=== PATIENT | female | born 1955 | race Caucasian/White ===

== ENCOUNTER 2016-06-19 08:46 | Emergency (ER) | payer OTHER ==
[~2016-06-19] VITALS: Ht 162.6 cm; Wt 86.4 kg
[~2016-06-19 08:46] MED LIST: ASPI81TA81 PO; ATEN25 PO; DOCU250C76 PO; FURO40TA5 PO; GABA800T PO; IBUP-2070 PO; LISI20TA PO; METF500T4 PO; METH-372 PO
[2016-06-19] MEDS ORDERED: SPIR25 PO (09:07)
[2016-06-19] MEDS ORDERED: CYCL-375 PO (09:07)
[2016-06-19] MEDS ORDERED: LISI-662 PO (09:07)
[2016-06-19] MEDS ORDERED: AMLO5TAB66 PO (09:07)
[2016-06-19] MEDS ORDERED: HYDR-3965 PO (09:07)
[2016-06-19] MEDS ORDERED: PRAV20TA4 PO (09:07)
[2016-06-19] MEDS ORDERED: PANT40TA25 PO (09:07)
[2016-06-19] MEDS ORDERED: CLOP75TA32 PO (09:07)
[2016-06-19] MEDS ORDERED: LORA10TA7 PO (09:07)
[2016-06-19] MEDS ORDERED: SITA100 PO (09:07)
[2016-06-19] MEDS ORDERED: DiphenhydrAMINE HCL 50 MG/ML VIAL IVP ONE (09:30)
[2016-06-19] MEDS ORDERED: ACETAMINOPHEN 500 MG TABLET PO ONE (09:30)
[2016-06-19] MEDS ORDERED: PROCHLORPERAZINE EDISYLATE 5 MG/ML 2 ML VIAL IVP ONE (09:30)
[2016-06-19] MEDS ORDERED: SODIUM CHLORIDE 0.9% 1,000 ML IV ONE ×2 (09:30→11:30)
[2016-06-19 09:40] LABS: GLUCOSE,POINT OF CARE 158 MG/DL (70-110)
[2016-06-19 10:09] LABS: BASOPHILS % (AUTO) 0.2 % (0.0-2.0); EOSINOPHILS % (AUTO) 0.5 % (1.0-6.0); HEMATOCRIT 36.8 % (36-46); HEMOGLOBIN 12.1 g/dL (12.0-16.0); LYMPHOCYTES # (AUTO) 1.4 K/uL (1.0-4.8); LYMPHOCYTES % (AUTO) 10.9 % (22.0-44.0); MEAN CORPUSCULAR HEMOGLOBIN 28.2 pg (26.0-34.0); MEAN CORPUSCULAR VOLUME 85 fL (80-100); MONOCYTES # (AUTO) 0.8 K/uL (0.1-1.0); MONOCYTES % (AUTO) 6.3 % (2.0-9.0); NEUTROPHILS # (AUTO) 10.8 K/uL (1.8-7.7); NEUTROPHILS % (AUTO) 82.1 % (40.0-70.0); PLATELET COUNT (AUTO) 247 K/uL (150-450); RED BLOOD CELL COUNT(AUTO) 4.31 MIL/uL (4.00-5.20); RED CELL DISTRIBUTION WIDTH 14.3 % (11.5-14.5); WHITE BLOOD COUNT (AUTO) 13.2 K/uL (4.5-11.0)
[2016-06-19 10:28] LABS: CALCIUM, TOTAL 8.8 mg/dL (8.8-10.5); CREATININE 1.43 mg/dL (0.60-1.30); POTASSIUM 4.3 mmol/L (3.5-5.1)
[2016-06-19 10:32] LABS: ALBUMIN 3.3 g/dL (3.4-5.0); BILIRUBIN,TOTAL 0.6 mg/dL (0.1-1.0); TOTAL PROTEIN, SERUM 7.5 g/dL (6.4-8.2)
[2016-06-19 13:22] LABS: APPEARANCE,URINE CLOUDY (CLEAR); GLUCOSE, URINE (UA) NEGATIVE (NEGATIVE); KETONES,URINE NEGATIVE (NEGATIVE); LEUKOCYTE ESTERASE ,URINE MODERATE (NEGATIVE); OCCULT BLOOD,URINE TRACE (NEGATIVE); PROTEIN,URINE NEGATIVE (NEGATIVE)
[2016-06-19 13:27] LABS: RBC,URINE 0-2 /HPF (0-2)
[2016-06-19 13:28] LABS: WBC,URINE 51-100 /HPF (0-5)
[2016-06-19 13:30] LABS: SQUAMOUS EPITHELIAL CELL,UR Few /LPF (None Seen)
[2016-06-19] MEDS ORDERED: CefTRIAXone 1 GM/DEXTROSE 50 ML IV ONE (13:45)
[2016-06-19 14:22] VITALS: BP 122/68
== END 2016-06-19 14:24 | disposition home or self-care (01) ==
LOC: EMS 08:49
DX: R51 Headache (principal); N12 Tubulo-interstitial nephritis, not specified as acute or chronic; E11.9 Type 2 diabetes mellitus without complications; E78.00 Pure hypercholesterolemia, unspecified; I25.10 Atherosclerotic heart disease of native coronary artery without angina pectoris; I10 Essential (primary) hypertension; Z79.84 Long term (current) use of oral hypoglycemic drugs
CPT/HCPCS: 36415; 80053; 81001; 82962; 84484; 84703; 85025; 87077; 87086; 87186; 96361; 96365; 96375; 99285; J0696; J0780; J1200; J7030

== ENCOUNTER 2016-06-28 20:31 | Inpatient (IN) | payer OTHER ==
[~2016-06-28] VITALS: Ht 162.6 cm; Wt 90.1 kg
[~2016-06-28 20:31] MED LIST changes: +AMLO5TAB66 PO; +CLOP75TA32 PO; +CYCL-375 PO; +HYDR-3965 PO; +LISI-662 PO; -LISI20TA PO; +LORA10TA7 PO; +PANT40TA25 PO; +PRAV20TA4 PO; +SITA100 PO; +SPIR25 PO
[2016-06-28 20:51] LABS: GLUCOSE,POINT OF CARE 171 MG/DL (70-110)
[2016-06-28 21:23] LABS: BASOPHILS % (AUTO) 0.4 % (0.0-2.0); EOSINOPHILS % (AUTO) 0.4 % (1.0-6.0); HEMATOCRIT 38.1 % (36-46); HEMOGLOBIN 12.8 g/dL (12.0-16.0); LYMPHOCYTES # (AUTO) 3.8 K/uL (1.0-4.8); LYMPHOCYTES % (AUTO) 31.6 % (22.0-44.0); MEAN CORPUSCULAR HEMOGLOBIN 28.5 pg (26.0-34.0); MEAN CORPUSCULAR HGB CONC 33.5 G/dL (31.0-37.0); MEAN CORPUSCULAR VOLUME 85 fL (80-100); MONOCYTES # (AUTO) 0.6 K/uL (0.1-1.0); MONOCYTES % (AUTO) 5.1 % (2.0-9.0); NEUTROPHILS # (AUTO) 7.6 K/uL (1.8-7.7); NEUTROPHILS % (AUTO) 62.5 % (40.0-70.0); PLATELET COUNT (AUTO) 372 K/uL (150-450); RED BLOOD CELL COUNT(AUTO) 4.49 MIL/uL (4.00-5.20); WHITE BLOOD COUNT (AUTO) 12.1 K/uL (4.5-11.0)
[2016-06-28 21:57] LABS: ALBUMIN 4.1 g/dL (3.4-5.0); BILIRUBIN,TOTAL 0.6 mg/dL (0.1-1.0); CALCIUM, TOTAL 9.4 mg/dL (8.8-10.5); CREATININE 2.04 mg/dL (0.60-1.30); POTASSIUM 4.6 mmol/L (3.5-5.1); TOTAL PROTEIN, SERUM 8.3 g/dL (6.4-8.2)
[2016-06-29] MEDS ORDERED: SODIUM CHLORIDE 0.9% 1,000 ML IV ONE ×2 (00:15→02:30)
[2016-06-29] MEDS ORDERED: HYDROmorphone 2 MG/ML SYRINGE IVP ONE ×2 (00:15→03:15)
[2016-06-29] MEDS ORDERED: ONDANSETRON HCL 4 MG/2 ML VIAL IVP ONE (00:15)
[2016-06-29 01:12] LABS: PROTHROMBIN TIME 10.5 SEC (9.4-11.6)
[2016-06-29 01:18] LABS: AMMONIA 10 umol/L (11-32)
[2016-06-29 01:19] LABS: LACTIC ACID 1.7 mmol/L (0.4-2.0)
[2016-06-29 01:20] LABS: TROPONIN I < 0.02 ng/mL (0.00-0.05)
[2016-06-29 01:35] LABS: CREATINE KINASE MB 1.7 ng/mL (0-5); CREATINE KINASE, TOTAL 113 U/L (26-192)
[2016-06-29 02:08] LABS: B-TYPE NATRIURETIC PEPTIDE < 5 pg/mL (0-100)
[2016-06-29] MEDS ORDERED: ONDANSETRON HCL 4 MG/2 ML VIAL IVP PRN ×2 (02:30→11:45)
[2016-06-29] MEDS ORDERED: 0.9% SODIUM CHLORIDE 10 ML SYRINGE IVP PRN (02:30)
[2016-06-29] MEDS ORDERED: ACETAMINOPHEN 325 MG TABLET PO PRN (02:30)
[2016-06-29 02:36] LABS: APPEARANCE,URINE CLEAR (CLEAR); GLUCOSE, URINE (UA) NEGATIVE (NEGATIVE); KETONES,URINE 15 mg/dL (NEGATIVE); LEUKOCYTE ESTERASE ,URINE NEGATIVE (NEGATIVE); OCCULT BLOOD,URINE NEGATIVE (NEGATIVE); PH,URINE 5.5 (5.0-8.0); PROTEIN,URINE NEGATIVE (NEGATIVE)
[2016-06-29 02:41] LABS: ADD UA MICROSCOPIC NO
[2016-06-29 05:12] VITALS: BP 120/74
[2016-06-29 11:23] VITALS: BP 119/71
[2016-06-29] MEDS ORDERED: BISACODYL 10 MG RECTAL RECTAL SUPPOSITORY PR PRN (11:45)
[2016-06-29] MEDS ORDERED: DEXTROSE 50%-WATER 25 GM/50 ML SYRINGE IVP PRN (11:45)
[2016-06-29] MEDS: MORPHINE SULFATE 2 MG/ML SYRINGE IVP PRN ×3 (12:01→23:41)
[2016-06-29 16:25] VITALS: BP 120/70
[2016-06-29] MEDS: ACETAMINOPHEN 325 MG TABLET PO PRN (18:34)
[2016-06-29 20:05] VITALS: BP 115/56
[2016-06-29] MEDS: DOCUSATE SODIUM 100 MG CAPSULE PO SCH (20:12)
[2016-06-29] MEDS: HEPARIN SODIUM,PORCINE 5,000 UNITS/ML VIAL SQ SCH (20:13)
[2016-06-29] MEDS: INSULIN ASPART 100 UNITS/ML SQ PRN (20:26)
[2016-06-29 22:41] LABS: GLUCOSE,POINT OF CARE 97 MG/DL (70-110)
[2016-06-30] VITALS (7 sets, daily range): BP systolic 102–124; BP diastolic 58–78
[2016-06-30] MEDS: MORPHINE SULFATE 2 MG/ML SYRINGE IVP PRN ×4 (05:14→20:38)
[2016-06-30 07:21] LABS: GLUCOSE,POINT OF CARE 108 MG/DL (70-110)
[2016-06-30 07:21] LABS: GLUCOSE COMMENT 1 Received Meds; GLUCOSE,POINT OF CARE 125 MG/DL (70-110)
[2016-06-30 07:21] LABS: GLUCOSE COMMENT 1 Received Meds; GLUCOSE,POINT OF CARE 151 MG/DL (70-110)
[2016-06-30 07:22] LABS: CALCIUM, TOTAL 8.8 mg/dL (8.8-10.5); CREATININE 1.4 mg/dL (0.60-1.30)
[2016-06-30] MEDS: PANTOPRAZOLE SODIUM 40 MG DR TABLET PO SCH (08:32)
[2016-06-30] MEDS: DOCUSATE SODIUM 100 MG CAPSULE PO SCH ×2 (08:33→20:37)
[2016-06-30] MEDS: HEPARIN SODIUM,PORCINE 5,000 UNITS/ML VIAL SQ SCH ×2 (08:33→20:39)
[2016-06-30] MEDS: ASPIRIN 81 MG CHEWABLE TABLET PO SCH (08:33)
[2016-06-30] MEDS: ACETAMINOPHEN 325 MG TABLET PO PRN (11:48)
[2016-06-30] MEDS ORDERED: SODIUM CHLORIDE 0.9% 250 ML IV ONE (15:30)
[2016-06-30] MEDS: MetroNIDAZOLE 500 MG/NACL 100 ML IV SCH ×2 (15:32→21:07)
[2016-06-30] MEDS: CIPROFLOXACIN 400 MG/D5% WATER 200 ML IV SCH (16:45)
[2016-06-30] MEDS: INSULIN ASPART 100 UNITS/ML SQ PRN ×2 (18:07→20:41)
[2016-06-30 18:51] LABS: GLUCOSE COMMENT 1 Received Meds; GLUCOSE,POINT OF CARE 143 MG/DL (70-110)
[2016-07-01] MEDS: CIPROFLOXACIN 400 MG/D5% WATER 200 ML IV SCH ×2 (02:32→17:30)
[2016-07-01] MEDS: MetroNIDAZOLE 500 MG/NACL 100 ML IV SCH ×3 (05:23→22:05)
[2016-07-01 06:37] LABS: BASOPHILS % (AUTO) 0.4 % (0.0-2.0); EOSINOPHILS % (AUTO) 1.2 % (1.0-6.0); HEMATOCRIT 35.9 % (36-46); HEMOGLOBIN 11.6 g/dL (12.0-16.0); LYMPHOCYTES # (AUTO) 2.1 K/uL (1.0-4.8); LYMPHOCYTES % (AUTO) 28.8 % (22.0-44.0); MEAN CORPUSCULAR HEMOGLOBIN 27.8 pg (26.0-34.0); MEAN CORPUSCULAR HGB CONC 32.4 G/dL (31.0-37.0); MEAN CORPUSCULAR VOLUME 86 fL (80-100); MONOCYTES # (AUTO) 0.5 K/uL (0.1-1.0); MONOCYTES % (AUTO) 6.8 % (2.0-9.0); NEUTROPHILS # (AUTO) 4.6 K/uL (1.8-7.7); NEUTROPHILS % (AUTO) 62.8 % (40.0-70.0); PLATELET COUNT (AUTO) 316 K/uL (150-450); RED BLOOD CELL COUNT(AUTO) 4.18 MIL/uL (4.00-5.20); RED CELL DISTRIBUTION WIDTH 14.5 % (11.5-14.5); WHITE BLOOD COUNT (AUTO) 7.3 K/uL (4.5-11.0)
[2016-07-01 07:12] LABS: GLUCOSE,POINT OF CARE 113 MG/DL (70-110)
[2016-07-01 07:12] LABS: GLUCOSE COMMENT 1 Received Meds; GLUCOSE,POINT OF CARE 143 MG/DL (70-110)
[2016-07-01 07:18] VITALS: BP 120/72
[2016-07-01] MEDS ORDERED: SODIUM CHLORIDE 0.9% 250 ML IV ONE (07:48)
[2016-07-01 08:21] LABS: CALCIUM, TOTAL 8.9 mg/dL (8.8-10.5); CREATININE 1.2 mg/dL (0.60-1.30)
[2016-07-01] MEDS: DOCUSATE SODIUM 100 MG CAPSULE PO SCH ×2 (09:00→20:15)
[2016-07-01] MEDS: ASPIRIN 81 MG CHEWABLE TABLET PO SCH (09:20)
[2016-07-01] MEDS: PANTOPRAZOLE SODIUM 40 MG DR TABLET PO SCH (09:21)
[2016-07-01] MEDS: HEPARIN SODIUM,PORCINE 5,000 UNITS/ML VIAL SQ SCH ×2 (09:24→22:05)
[2016-07-01] MEDS: MORPHINE SULFATE 2 MG/ML SYRINGE IVP PRN ×3 (09:31→20:13)
[2016-07-01 09:37] VITALS: BP 117/70
[2016-07-01 11:20] VITALS: BP 111/68
[2016-07-01] MEDS ORDERED: PNEUMOCOCCAL VACCINE POLYVALENT 0.5 ML VIAL [PPSV23] IM ONE (15:00)
[2016-07-01] MEDS ORDERED: INFLUENZA VIRUS VACCINE QVS 2016-17 (3YR+)/PF 60 MCG/0.5 ML SYRINGE IM ONE (15:00)
[2016-07-01 15:40] VITALS: BP 114/77
[2016-07-01] MEDS ORDERED: DIGOXIN 250 MCG/ML 2 ML AMP IVP ONE (15:45)
[2016-07-01] MEDS: LACTOBACILLUS ACIDOPHILUS/BULGARICUS GRANULES PACKET PO SCH ×2 (16:15→20:15)
[2016-07-01 18:27] LABS: GLUCOSE,POINT OF CARE 102 MG/DL (70-110)
[2016-07-01 19:15] VITALS: BP 122/71
[2016-07-01 22:16] LABS: GLUCOSE,POINT OF CARE 126 MG/DL (70-110)
[2016-07-02 00:14] VITALS: BP 100/51
[2016-07-02] MEDS: CIPROFLOXACIN 400 MG/D5% WATER 200 ML IV SCH (02:50)
[2016-07-02 04:17] VITALS: BP 105/57
[2016-07-02] MEDS: MetroNIDAZOLE 500 MG/NACL 100 ML IV SCH (05:22)
[2016-07-02 06:48] LABS: BASOPHILS % (AUTO) 0.3 % (0.0-2.0); HEMATOCRIT 33.4 % (36-46); HEMOGLOBIN 10.9 g/dL (12.0-16.0); LYMPHOCYTES # (AUTO) 1.7 K/uL (1.0-4.8); MEAN CORPUSCULAR HEMOGLOBIN 28.2 pg (26.0-34.0); MEAN CORPUSCULAR HGB CONC 32.6 G/dL (31.0-37.0); MEAN CORPUSCULAR VOLUME 87 fL (80-100); MONOCYTES # (AUTO) 0.4 K/uL (0.1-1.0); MONOCYTES % (AUTO) 5.6 % (2.0-9.0); NEUTROPHILS % (AUTO) 70.1 % (40.0-70.0); PLATELET COUNT (AUTO) 283 K/uL (150-450); RED BLOOD CELL COUNT(AUTO) 3.85 MIL/uL (4.00-5.20); RED CELL DISTRIBUTION WIDTH 14.4 % (11.5-14.5); WHITE BLOOD COUNT (AUTO) 7.2 K/uL (4.5-11.0)
[2016-07-02 06:58] LABS: CALCIUM, TOTAL 8.6 mg/dL (8.8-10.5); CREATININE 1.31 mg/dL (0.60-1.30); POTASSIUM 4.5 mmol/L (3.5-5.1)
[2016-07-02 07:38] VITALS: BP 108/58
[2016-07-02] MEDS: DOCUSATE SODIUM 100 MG CAPSULE PO SCH (09:00)
[2016-07-02] MEDS: LACTOBACILLUS ACIDOPHILUS/BULGARICUS GRANULES PACKET PO SCH (09:28)
[2016-07-02] MEDS: PANTOPRAZOLE SODIUM 40 MG DR TABLET PO SCH (09:28)
[2016-07-02] MEDS: ASPIRIN 81 MG CHEWABLE TABLET PO SCH (09:28)
[2016-07-02] MEDS: HEPARIN SODIUM,PORCINE 5,000 UNITS/ML VIAL SQ SCH (09:30)
[2016-07-02 11:38] VITALS: BP 151/78
[2016-07-02 14:57] LABS: GLUCOSE,POINT OF CARE 123 MG/DL (70-110)
[2016-07-02 14:57] LABS: GLUCOSE,POINT OF CARE 111 MG/DL (70-110)
[2016-07-02 15:22] VITALS: BP 133/76
[2016-07-02] MEDS ORDERED: CIPR500S4 PO (15:45)
[2016-07-02] MEDS ORDERED: CIPR-279 PO (15:46)
[2016-07-02] MEDS ORDERED: ACID1GRA3 PO (15:59)
[2016-07-02] MEDS ORDERED: METR500 PO (16:01)
[2016-07-04 11:57] LABS: GLUCOSE,POINT OF CARE 104 MG/DL (70-110)
[2016-07-04 11:58] LABS: GLUCOSE COMMENT 1 Received Meds; GLUCOSE,POINT OF CARE 122 MG/DL (70-110)
== END 2016-07-02 16:40 | disposition home or self-care (01) | DRG 720 ==
LOC: EMS 20:31 → 5S 06-29 03:11
PROVIDERS: ADMIT Internal Medicine; ATTEND Internal Medicine
PROC: 3E0234Z Introduction of Serum, Toxoid and Vaccine into Muscle, Percutaneous Approach (ICD-10-PCS; principal; 2016-07-01)
PROC: 3E0234Z Introduction of Serum, Toxoid and Vaccine into Muscle, Percutaneous Approach (ICD-10-PCS; 2016-07-01)
DX: A41.9 Sepsis, unspecified organism (principal); N17.0 Acute kidney failure with tubular necrosis; I50.9 Heart failure, unspecified; I11.0 Hypertensive heart disease with heart failure; E11.40 Type 2 diabetes mellitus with diabetic neuropathy, unspecified; K52.9 Noninfective gastroenteritis and colitis, unspecified; N28.1 Cyst of kidney, acquired; E87.1 Hypo-osmolality and hyponatremia; E66.9 Obesity, unspecified; N20.0 Calculus of kidney; I25.10 Atherosclerotic heart disease of native coronary artery without angina pectoris; E78.00 Pure hypercholesterolemia, unspecified; K56.41 Fecal impaction; Z23 Encounter for immunization; Z79.899 Other long term (current) drug therapy; Z79.4 Long term (current) use of insulin; Z79.1 Long term (current) use of non-steroidal anti-inflammatories (NSAID); Z79.82 Long term (current) use of aspirin; Z68.34 Body mass index [BMI] 34.0-34.9, adult; Z98.890 Other specified postprocedural states; Z90.49 Acquired absence of other specified parts of digestive tract
CPT/HCPCS: 51701; 74176; 76770; 82962; 83605; 87040; 87324; 87449; 90471; 93005; 93306; 96361; 96374; 96375; 99285; J0744; J1170; J1644; J2270; J2405; J3490; J7030; J7050

== ENCOUNTER 2017-05-29 11:02 | Emergency (ER) | payer OTHER ==
[~2017-05-29] VITALS: Ht 165.1 cm; Wt 79.5 kg
[~2017-05-29 11:02] MED LIST changes: +ACID1GRA PO; -ATEN25 PO; +ATEN25TA PO; +CIPR-279 PO; -CYCL-375 PO; +CYCL10TA7 PO; -DOCU250C76 PO; -HYDR-3965 PO; +HYDR-4061 PO; -IBUP-2070 PO; -LISI-662 PO; -LORA10TA7 PO; -METH-372 PO; +METR500 PO; -SPIR25 PO
[2017-05-29] MEDS ORDERED: SIMV-259 PO (11:14)
[2017-05-29 11:18] LABS: GLUCOSE,POINT OF CARE 130 MG/DL (70-110)
[2017-05-29 13:13] LABS: BASOPHILS % (AUTO) 0.6 % (0.0-2.0); EOSINOPHILS % (AUTO) 2.8 % (1.0-6.0); HEMATOCRIT 38.5 % (36-46); LYMPHOCYTES # (AUTO) 2.4 K/uL (1.0-4.8); LYMPHOCYTES % (AUTO) 32.4 % (22.0-44.0); MEAN CORPUSCULAR HGB CONC 33.7 G/dL (31.0-37.0); MEAN CORPUSCULAR VOLUME 83 fL (80-100); MONOCYTES # (AUTO) 0.5 K/uL (0.1-1.0); MONOCYTES % (AUTO) 6.3 % (2.0-9.0); NEUTROPHILS # (AUTO) 4.3 K/uL (1.8-7.7); NEUTROPHILS % (AUTO) 57.9 % (40.0-70.0); PLATELET COUNT (AUTO) 270 K/uL (150-450); RED BLOOD CELL COUNT(AUTO) 4.62 MIL/uL (4.00-5.20); RED CELL DISTRIBUTION WIDTH 15.7 % (11.5-14.5)
[2017-05-29 13:32] LABS: CREATININE 1.57 mg/dL (0.60-1.30); POTASSIUM 4.3 mmol/L (3.5-5.1)
[2017-05-29 13:34] LABS: ALBUMIN 3.7 g/dL (3.4-5.0); BILIRUBIN,TOTAL 0.5 mg/dL (0.1-1.0); TOTAL PROTEIN, SERUM 8.1 g/dL (6.4-8.2)
[2017-05-29] MEDS ORDERED: KETOROLAC TROMETHAMINE 60 MG/2 ML VIAL IM ONE (14:00)
[2017-05-29 14:48] VITALS: BP 133/78
== END 2017-05-29 15:28 | disposition home or self-care (01) ==
LOC: EMS 11:07
DX: S43.402A Unspecified sprain of left shoulder joint, initial encounter (principal); J44.9 Chronic obstructive pulmonary disease, unspecified; I25.10 Atherosclerotic heart disease of native coronary artery without angina pectoris; E11.9 Type 2 diabetes mellitus without complications; I10 Essential (primary) hypertension; G89.29 Other chronic pain; E78.00 Pure hypercholesterolemia, unspecified; X58.XXXA Exposure to other specified factors, initial encounter; Y93.89 Activity, other specified; Y92.89 Other specified places as the place of occurrence of the external cause; Y99.8 Other external cause status
CPT/HCPCS: 36415; 80053; 82962; 84484; 85025; 93005; 96372; 99285; J1885

== ENCOUNTER 2017-11-17 00:58 | Emergency (ER) | payer OTHER ==
[~2017-11-17] VITALS: Ht 165.1 cm; Wt 79.0 kg
[~2017-11-17 00:58] MED LIST changes: -ACID1GRA PO; -ASPI81TA81 PO; -ATEN25TA PO; -CIPR-279 PO; -FURO40TA5 PO; -GABA800T PO; -METF500T4 PO; -METR500 PO; -PRAV20TA4 PO; +SIMV-259 PO
[2017-11-17 01:01] VITALS: BP 141/69
[2017-11-17 01:14] LABS: GLUCOSE,POINT OF CARE 317 MG/DL (70-110)
[2017-11-17] MEDS ORDERED: PRAV20TA4 PO (01:16)
[2017-11-17] MEDS ORDERED: LISI10TA7 PO (01:16)
[2017-11-17] MEDS ORDERED: METF-444 PO (01:16)
[2017-11-17] MEDS ORDERED: ALBU8.5H8 IH (01:16)
[2017-11-17] MEDS ORDERED: DULO20CA30 PO (01:16)
[2017-11-17] MEDS ORDERED: LORA10TA60 PO (01:16)
[2017-11-17] MEDS ORDERED: MONT10TA21 PO (01:16)
[2017-11-17] MEDS ORDERED: SPIR25TA PO (01:16)
[2017-11-17] MEDS ORDERED: FentaNYL CITRATE-PF 100 MCG/2 ML VIAL IM ONE (01:45)
[2017-11-17] MEDS ORDERED: KETOROLAC TROMETHAMINE 60 MG/2 ML VIAL IM ONE (01:45)
[2017-11-17] MEDS ORDERED: DiphenhydrAMINE HCL 50 MG/ML VIAL IM ONE (01:45)
== END 2017-11-17 02:53 | disposition home or self-care (01) ==
LOC: EMS 00:59
DX: M62.830 Muscle spasm of back (principal); E11.65 Type 2 diabetes mellitus with hyperglycemia; M54.6 Pain in thoracic spine; M25.511 Pain in right shoulder; M25.512 Pain in left shoulder; G89.29 Other chronic pain; I25.10 Atherosclerotic heart disease of native coronary artery without angina pectoris; I11.0 Hypertensive heart disease with heart failure; I50.9 Heart failure, unspecified; K21.9 Gastro-esophageal reflux disease without esophagitis; E78.00 Pure hypercholesterolemia, unspecified
CPT/HCPCS: 82962; 96372; 99284; J1200; J1885; J3010

== ENCOUNTER 2018-04-12 17:08 | Emergency (ER) | payer OTHER ==
[~2018-04-12] VITALS: Ht 162.6 cm; Wt 86.4 kg
[~2018-04-12 17:08] MED LIST changes: +ALBU8.5H8 IH; -CLOP75TA32 PO; -CYCL10TA7 PO; +DULO20CA30 PO; +LISI10TA7 PO; +LORA10TA60 PO; +METF-444 PO; +MONT10TA21 PO; -PANT40TA25 PO; +PRAV20TA4 PO; -SIMV-259 PO; -SITA100 PO; +SPIR25TA PO
[2018-04-12 17:24] LABS: GLUCOSE,POINT OF CARE 115 MG/DL (70-110)
[2018-04-12] MEDS ORDERED: KETOROLAC TROMETHAMINE 10 MG TABLET PO ONE (21:00)
[2018-04-12 21:34] VITALS: BP 145/82
== END 2018-04-12 21:34 | disposition home or self-care (01) ==
LOC: EMS 17:08
DX: G89.29 Other chronic pain (principal); M54.5 Low back pain; I11.0 Hypertensive heart disease with heart failure; I50.9 Heart failure, unspecified; E78.00 Pure hypercholesterolemia, unspecified; E11.9 Type 2 diabetes mellitus without complications; K21.9 Gastro-esophageal reflux disease without esophagitis; Z79.899 Other long term (current) drug therapy

== ENCOUNTER 2018-08-26 11:16 | Emergency (ER) | payer OTHER ==
[~2018-08-26] VITALS: Ht 162.6 cm; Wt 86.4 kg
[2018-08-26 11:39] LABS: GLUCOSE,POINT OF CARE 107 MG/DL (70-110)
[2018-08-26] MEDS ORDERED: KETOROLAC TROMETHAMINE 10 MG TABLET PO ONE (12:30)
[2018-08-26 14:49] VITALS: BP 123/78
== END 2018-08-26 14:55 | disposition home or self-care (01) ==
LOC: EMS 11:16
DX: S83.421A Sprain of lateral collateral ligament of right knee, initial encounter (principal); Z79.899 Other long term (current) drug therapy; X58.XXXA Exposure to other specified factors, initial encounter; Y93.89 Activity, other specified; Y92.89 Other specified places as the place of occurrence of the external cause; Y99.8 Other external cause status

== ENCOUNTER 2018-09-01 06:40 | Day surgery (SDC) | payer OTHER ==
[~2018-09-01] VITALS: Ht 162.6 cm; Wt 87.7 kg
[~2018-09-01 06:40] MED LIST changes: +SODIUM CHLORIDE 0.9% 1,000 ML IV ONE
[2018-09-01] MEDS ORDERED: ALBUTEROL SULFATE 2.5 MG/0.5 ML NEB SOLUTION NEB ONE (06:41)
[2018-09-01] MEDS ORDERED: LIDOCAINE 2% 30 ML JELLY TP ONE (06:41)
[2018-09-01] MEDS ORDERED: BENZOCAINE 20% 50 MCG/SPRAY 57 GM TP ONE (06:41)
[2018-09-01] MEDS ORDERED: LIDOCAINE 4% 50 ML SOLUTION TP ONE (06:41)
[2018-09-01] MEDS ORDERED: SODIUM CHLORIDE 0.9% 1,000 ML IV ONE (07:00)
[2018-09-01 07:34] LABS: GLUCOMETER DEV NAME(LOC) SDS.; GLUCOSE,POINT OF CARE 109 MG/DL (70-110)
[2018-09-01] MEDS ORDERED: CYCL10 PO (07:41)
[2018-09-01] MEDS ORDERED: CITA10TA68 PO (07:41)
[2018-09-01] MEDS ORDERED: LISI-662 PO (07:41)
[2018-09-01] MEDS ORDERED: MONT10TA21 PO (07:41)
[2018-09-01] MEDS ORDERED: MELO-107 PO (07:41)
[2018-09-01] MEDS ORDERED: FentaNYL CITRATE-PF 100 MCG/2 ML VIAL ONE (07:52)
[2018-09-01] MEDS ORDERED: MIDAZOLAM HCL 2 MG/2 ML VIAL ONE (07:52)
[2018-09-01] MEDS ORDERED: MethylPREDNISolone SOD SUCC 125 MG/2 ML VIAL IVP ONE (09:00)
[2018-09-01] MEDS ORDERED: MethylPREDNISolone SOD SUCC 125 MG/2 ML VIAL ONE (09:27)
[2018-09-01] MEDS ORDERED: OXYGEN THERAPY IH SCH (20:00)
== END 2018-09-01 10:35 | disposition home or self-care (01) ==
LOC: SURGERY 06:40
PROVIDERS: ATTEND Internal Medicine Critical Care Medicine
DX: J38.4 Edema of larynx (principal); B37.0 Candidal stomatitis; G47.33 Obstructive sleep apnea (adult) (pediatric); E11.9 Type 2 diabetes mellitus without complications; I50.9 Heart failure, unspecified; I11.0 Hypertensive heart disease with heart failure; Z98.890 Other specified postprocedural states; Z98.42 Cataract extraction status, left eye; Z98.41 Cataract extraction status, right eye; K21.9 Gastro-esophageal reflux disease without esophagitis
CPT/HCPCS: 31623; 31624; 71045; 82962; 87015; 87070; 87101; 87205; 87206; 87220; 88108; 88312; J2250; J2930; J3010; J7030

== ENCOUNTER 2021-06-04 17:34 | Emergency (ER) | payer OTHER ==
[~2021-06-04] VITALS: Ht 162.6 cm; Wt 88.2 kg
[~2021-06-04 17:34] MED LIST changes: +CITA10TA99 PO; +CYCL10TA17 PO; -DULO20CA30 PO; +LISI-894 PO; -LISI10TA7 PO; +MELO-107 PO; +MONT-35 PO; -MONT10TA21 PO; -PRAV20TA4 PO; -SODIUM CHLORIDE 0.9% 1,000 ML IV ONE
[2021-06-04 18:01] LABS: BASOPHILS % (AUTO) 0.7 % (0.0-2.0); EOSINOPHILS % (AUTO) 0.7 % (1.0-6.0); HEMATOCRIT 38.9 % (36-46); HEMOGLOBIN 13.1 g/dL (12.0-16.0); LYMPHOCYTES # (AUTO) 0.9 K/uL (1.0-4.8); MEAN CORPUSCULAR HEMOGLOBIN 29.5 pg (26.0-34.0); MEAN CORPUSCULAR HGB CONC 33.8 G/dL (31.0-37.0); MEAN CORPUSCULAR VOLUME 87 fL (80-100); MONOCYTES # (AUTO) 0.1 K/uL (0.1-1.0); MONOCYTES % (AUTO) 1.8 % (2.0-9.0); NEUTROPHILS # (AUTO) 6.7 K/uL (1.8-7.7); NEUTROPHILS % (AUTO) 84.8 % (40.0-70.0); PLATELET COUNT (AUTO) 269 K/uL (150-450); RED BLOOD CELL COUNT(AUTO) 4.46 MIL/uL (4.00-5.20); RED CELL DISTRIBUTION WIDTH 14.7 % (11.5-14.5)
[2021-06-04 18:17] LABS: CREATININE 1.63 mg/dL (0.60-1.30); INR 0.9 (0.9-1.1); POTASSIUM 4.2 mmol/L (3.5-5.1); PROTHROMBIN TIME 10.1 SEC (9.4-11.6)
[2021-06-04 18:42] LABS: ALBUMIN 3.6 g/dL (3.4-5.0); BILIRUBIN,TOTAL 0.7 mg/dL (0.1-1.0); TOTAL PROTEIN, SERUM 8.1 g/dL (6.4-8.2)
[2021-06-04] MEDS ORDERED: SODIUM CHLORIDE 0.9% 1,000 ML IV ONE (19:00)
[2021-06-04 19:13] LABS: COVID AG,FIA SOURCE NASOPHARYNGEAL
[2021-06-04] MEDS ORDERED: ACETAMINOPHEN 500 MG TABLET PO ONE (19:30)
[2021-06-04 20:36] LABS: GLUCOSE,POINT OF CARE 211 MG/DL (70-110)
[2021-06-04 21:01] LABS: AMPHET/METH SCREEN,URINE NEGATIVE (NEGATIVE); BARBITURATE SCREEN, URINE NEGATIVE (NEGATIVE); BENZODIAZEPINES SCREEN,URINE NEGATIVE (NEGATIVE); CANNABINOID SCREEN,URINE NEGATIVE (NEGATIVE); COCAINE SCREEN,URINE NEGATIVE (NEGATIVE); METHADONE SCREEN, URINE NEGATIVE (NEGATIVE); OPIATE SCREEN,URINE POSITIVE (NEGATIVE)
[2021-06-04 21:08] LABS: APPEARANCE,URINE CLOUDY (CLEAR); BILIRUBIN,URINE NEGATIVE (NEGATIVE); GLUCOSE, URINE (UA) >=1000 mg/dL (NEGATIVE); KETONES,URINE TRACE mg/dL (NEGATIVE); LEUKOCYTE ESTERASE ,URINE NEGATIVE (NEGATIVE); OCCULT BLOOD,URINE NEGATIVE (NEGATIVE); PH,URINE 5.5 (5.0-8.0); PROTEIN,URINE NEGATIVE (NEGATIVE)
[2021-06-04 21:30] LABS: PHENCYCLIDINE SCREEN,URINE NEGATIVE (NEGATIVE)
[2021-06-04 21:41] LABS: NITRATE,URINE POSITIVE (NEGATIVE)
[2021-06-04 21:42] LABS: BACTERIA,URINE Many /HPF (None Seen); RBC,URINE 0-2 /HPF (0-2)
[2021-06-04] MEDS ORDERED: CefTRIAXone 1 GM/DEXTROSE 50 ML IV ONE (23:00)
[2021-06-04] MEDS ORDERED: PHEN-846 PO (23:11)
[2021-06-04] MEDS ORDERED: BACTDSB PO (23:11)
[2021-06-04 23:37] VITALS: BP 108/68
== END 2021-06-04 23:41 | disposition home or self-care (01) ==
LOC: EMS 17:36
DX: N39.0 Urinary tract infection, site not specified (principal); R00.2 Palpitations; M79.10 Myalgia, unspecified site; I11.0 Hypertensive heart disease with heart failure; I50.9 Heart failure, unspecified; I25.10 Atherosclerotic heart disease of native coronary artery without angina pectoris; E11.9 Type 2 diabetes mellitus without complications; K21.9 Gastro-esophageal reflux disease without esophagitis; E78.00 Pure hypercholesterolemia, unspecified; Z20.822 Contact with and (suspected) exposure to COVID-19; Z90.89 Acquired absence of other organs; Z79.899 Other long term (current) drug therapy; Z79.84 Long term (current) use of oral hypoglycemic drugs
CPT/HCPCS: 36415; 71045; 80053; 80307; 81001; 82550; 82962; 83880; 84484; 85025; 85610; 85730; 87086; 87426; 93005; 96361; 96365; 99285; J0696; J7030

== ENCOUNTER 2023-06-11 10:41 | Emergency (ER) | payer MEDICARE, MEDICAID ==
[~2023-06-11] VITALS: Ht 165.1 cm; Wt 79.5 kg
[~2023-06-11 10:41] MED LIST changes: +BACTDSB PO; +CYCL-448 PO; -CYCL10TA17 PO; -MELO-107 PO; +MELO-381 PO; +PHEN-846 PO
[2023-06-11] MEDS ORDERED: ALBU18HF12 PO (10:49)
[2023-06-11] MEDS ORDERED: ATOR20TA65 PO (10:49)
[2023-06-11] MEDS ORDERED: METF-1211 PO (10:49)
[2023-06-11] MEDS ORDERED: LORA10TA7 PO (10:49)
[2023-06-11] MEDS ORDERED: ASPI-1444 PO (10:49)
[2023-06-11] MEDS ORDERED: BECL10.62 PO (10:49)
[2023-06-11] MEDS ORDERED: AMLO10TA55 PO (10:49)
[2023-06-11] MEDS ORDERED: ESCI-8 PO (10:49)
[2023-06-11] MEDS ORDERED: MULT-1366 PO (10:49)
[2023-06-11] MEDS ORDERED: HYDR12.54 PO (10:49)
[2023-06-11] MEDS ORDERED: ACET-66 PO (10:49)
[2023-06-11] MEDS ORDERED: FERR-72 PO (10:49)
[2023-06-11] MEDS ORDERED: LISI40TA9 PO (10:49)
[2023-06-11 10:51] VITALS: TEMP 98.1
[2023-06-11] MEDS ORDERED: KETOROLAC TROMETHAMINE 60 MG/2 ML VIAL IM ONE (11:45)
[2023-06-11] MEDS ORDERED: METHOCARBAMOL 500 MG TABLET PO ONE (11:45)
[2023-06-11] MEDS ORDERED: METH-659 PO (12:33)
[2023-06-11 12:41] VITALS: BP 128/73; PULSE 84; RESP 16
== END 2023-06-11 12:48 | disposition home or self-care (01) ==
LOC: EMS 10:41
DX: M54.32 Sciatica, left side (principal); E78.00 Pure hypercholesterolemia, unspecified; I25.10 Atherosclerotic heart disease of native coronary artery without angina pectoris; I11.0 Hypertensive heart disease with heart failure; Z90.49 Acquired absence of other specified parts of digestive tract; Z98.890 Other specified postprocedural states
CPT/HCPCS: 99283; 82962; 96372; J1885